=== PATIENT | male | born 1950 | race Caucasian/White ===

== ENCOUNTER 2023-04-07 04:26 | Inpatient (IN) | payer MEDICARE, SELFPAY ==
[2023-04-07] VITALS (51 sets, daily range): BP systolic 75–183; BP diastolic 44–96; PULSE 68–129; RESP 12–31; TEMP 36–37.4; O2SAT 83–99; BMI 42.5
--- NOTE | 2023-04-07 | ECHO_ITS ---
Patient Info Name: Agustín Torre Age: 73 years : 1950 Gender: Male Ht: 71 in Wt: 315 lbs BSA: 2.74 m2 HR: 68 bpm BP: 99 / 63 mmHg Heart Rhythm: Tachycardia Technical Quality: Good Exam Date: 04/07/2023 1:18 PM Exam Location: Echo Lab Patient Status: Inpatient Admit Date: 04/07/2023 Staff Ordering Physician: Andrew Posadas MD Rfp Writer: Barbara Quiros RDCS Attending Provider: Latesha Kendall MD Referring Physician: Katharina CONTRERAS; Exam Type: CA echo dop color flow w con Study Info Indications - Evaluate cardiac function, diffuse edema Complete two-dimensional, color flow and Doppler transthoracic echocardiogram is performed with contrast to opacify the left ventricle and to improve the deliniation of the left ventricle endocardial borders. Contrast/Agitated Saline Contrast/Ag. Saline: Definity Amount: 2.00 ml Administered By: Barbara Quiros RDCS Existing IV Access: Yes IV Access Condition: patent with no signs of infiltration Summary 1. Left ventricular chamber dimension is normal. 2. Left ventricular systolic function is severely reduced, estimated at 30-35%. 3. There is mildly increased left ventricular wall thickness. 4. Left ventricular septal wall motion is abnormal with septal motion related to bundle branch block. 5. The left ventricular diastolic function is abnormal. 6. Left atrial chamber dimension is mildly enlarged. 7. There is mild mitral valve regurgitation. 8. The mitral valve has calcified annulus. 9. There is mild tricuspid valve regurgitation. 10. Mild pulmonary hypertension, estimated pulmonary arterial systolic pressure is 40 mmHg. Left Ventricle Left ventricular chamber dimension is normal. Left ventricular systolic function is severely reduced, estimated at 30-35%. There is mildly increased left ventricular wall thickness. Left ventricular septal wall motion is abnormal with septal motion related to bundle branch block. The left ventricular diastolic function is abnormal. Right Ventricle Right ventricular chamber dimension is normal. Right ventricular systolic function is normal. Left Atria Left atrial chamber dimension is mildly enlarged. Right Atria Right atrial chamber dimension is normal. Atrial Septum Intact interatrial septum visualized by color flow imaging. Aortic Valve The aortic valve is trileaflet. There is mild aortic valve sclerosis. There is no aortic valve stenosis. There is trace aortic valve regurgitation. Pulmonic Valve The pulmonic valve is normal. There is no pulmonic valve stenosis. There is trace pulmonic regurgitation. Mitral Valve The mitral valve has calcified annulus. There is no mitral valve stenosis. There is mild mitral valve regurgitation. Tricuspid Valve The tricuspid valve leaflets are normal. There is no significant tricuspid valve stenosis. There is mild tricuspid valve regurgitation. Mild pulmonary hypertension, estimated pulmonary arterial systolic pressure is 40 mmHg. Pericardium/Pleural The pericardium appears normal. There is trivial pericardial effusion. Inferior Vena Cava Dilated inferior vena cava with <50% collapse upon inspiration consistent with elevated right atrial pressure, 15 mmHg. Aorta The aortic root size at the sinus of Valsalva is normal. Left Ventricular Outflow Tract Name Value Normal
--- NOTE | ~2023-04-07 | XR_ITS ---
Portable chest x-ray Comparison: 01/06/2018 Clinical History: Dyspnea Findings: Kvsvj-[id number]-[id number] right pleural effusion present with hazy right basilar and midlung airsp derrell disease. Left lung clear. Cardiomediastinal silhouette is stable. Bones and soft tissues are unr emarkable. Impression: Small right pleural effusion with probable bibasilar/right midlung pneumonia. Correlate for asymmetri c pulmonary edema. Reviewed, dictated and finalized at location M. T ROOM INSPECTOR Impression: Small right pleural effusion with probable bibasilar/right midlung pneumonia. C orrelate for asymmetric pulmonary edema.
--- NOTE | ~2023-04-07 | XR_ITS ---
EXAMINATION: XR chest ET placement DATE: 04/07/2023 09:35 INDICATION: Intubation TECHNIQUE: frontal view of the chest was obtained. COMPARISON: Chest radiograph and CT from earlier in the day on 04/07/2023 FINDINGS: Endotracheal tube tip 6.0 cm above the johnson. Nasogastric tube with proximal side-port in the body o f the stomach and distal tip extending beyond the inferior margin of the [id number]. Patchy airspa ce opacities in the left mid and lower lung zones. No pneumothorax or evident left pleural effusion. More dense opacities throughout the right hemithorax. Mild cardiomegaly. IMPRESSION: 1. Endotracheal tip 6.0 cm above the johnson. Consider advancement by 4 cm. 2. Extensive bilateral airspace opacities which on recent prior CT correspond to extensive bilateral multifocal pneumonia versus pulmonary edema and moderate-sized right pleural effusion. 3. Cardiomegaly. Reviewed, dictated and finalized at location A. ARY MONITOR IMPRESSION: 1. Endotracheal tip 6.0 cm above the johnson. Consider advancement by 4 cm. 2. Extensive bilateral airspace opacities which on recent prior CT correspond t o extensive bilateral multifocal pneumonia versus pulmonary edema and moderate- sized right pleural effusion. 3. Cardiomegaly.
--- NOTE | ~2023-04-07 | XR_ITS ---
XR abdomen gastric tube insert INDICATION: Evaluate NG tube position. TECHNIQUE: Limited KUB perform for evaluating NG tube . COMPARISON: No prior studies for comparison. FINDINGS: NG tube tip in the stomach. Visualized bowel gas pattern is unremarkable. IMPRESSION: 1: NG tube tip in the stomach. Reviewed, dictated and finalized at location L. SOFTWARE ARCHITECT
--- NOTE | ~2023-04-07 | XR_ITS ---
XR chest 1V portable 04/07/2023 13:04 Indication: Central line placement Procedure: AP portable chest Comparison: 04/07/2023 Findings: Right IJ central line tip in the SVC. Endotracheal tube tip 5.3 cm above the johnson. NG tub e in the stomach. Diffuse bilateral airspace disease. There is right pleural effusion. No pneumothora x. Impression: 1: Diffuse bilateral airspace disease may represent edema or pneumonia. 2: Right IJ central line tip in the SVC. Reviewed, dictated and finalized at location L. OR OF DENTAL MEDICINE Impression: 1: Diffuse bilateral airspace disease may represent edema or pneumonia. 2: Right IJ central line tip in the SVC.
--- NOTE | ~2023-04-07 | CT_ITS ---
Clinical Indication: Dyspnea CT Scan of the Chest with Contrast: Technique: Contiguous sections were acquired throughout the chest after intravenous administration of 100 cc of Omnipaque 350. Dose reduction technique was used on this scan by utilizing automated expos ure control and iterative reconstruction technique. The dose-length product (DLP) was 986.99 mGy-cm. Findings: There is no evidence of any significant mediastinal, hilar or axillary lymphadenopathy. There is no f illing defect in the pulmonary arterial tree to suggest pulmonary embolus. There is no evidence of ao rtic dissection or aneurysm. No pericardial effusion. There is moderate to large right pleural effusion with near complete right lower lobe atelectasis. Th ere is minimal left pleural effusion. There is extensive patchy consolidation throughout the aerated lungs bilaterally. Images through the upper abdomen reveal prominent adrenal glands, suggestive of adrenal hyperplasia. Impression: No evidence of pulmonary embolus, aortic dissection, or aortic aneurysm. Moderate to large right pleural effusion with near complete right lower lobe atelectasis. Minimal left pleural effusion. Extensive pulmonary consolidation bilaterally. Correlate for severe pulmonary edema versus bilateral extensive pneumonia. Reviewed, dictated and finalized at [facility]. NIZATIONAL DEVELOPMENT CONSULTANT Impression: No evidence of pulmonary embolus, aortic dissection, or aortic aneurysm. Moderate to large right pleural effusion with near complete right lower lobe at electasis. Minimal left pleural effusion. Extensive pulmonary consolidation bilaterally. Correlate for severe pulmonary e leonel versus bilateral extensive pneumonia.
--- NOTE | ~2023-04-07 | US_ITS ---
EXAMINATION: US venous doppler [facility] DATE: 04/07/2023 21:03 INDICATION: Lower limb edema. TECHNIQUE: Grayscale ultrasound images without and with compression and Doppler ultrasound images of the bilateral lower extremity veins were obtained. COMPARISON: None. FINDINGS: The visualized portions of right common femoral vein, profunda (deep) femoral vein, popliteal vein, a nd greater saphenous vein outflow are patent. The right femoral vein and posterior tibial veins and p eroneal veins are not well visualized due to the patient's body habitus. The visualized portions of left common femoral vein, profunda femoral vein, femoral vein, popliteal v ein, peroneal veins, posterior tibial veins, and greater saphenous vein outflow are patent. IMPRESSION: 1. No deep venous thrombosis. Reviewed, dictated and finalized at location E. FORM LOADER
--- NOTE | ~2023-04-07 | XR_ITS ---
Portable chest x-ray Comparison: 04/08/2023 Clinical History: Respiratory failure Findings: Endotracheal tube, NG tube, and right IJ line are in place. There is diffuse pulmonary con solidation with small right pleural effusion. Cardiomediastinal silhouette is stable. Bones and soft tissues are unremarkable. Impression: Diffuse pulmonary consolidation with small right pleural effusion. Correlate for pulmonary edema vers us infection. Support tubes, as above. Reviewed, dictated and finalized at location . CE ASSISTANT RECEPTIONIST Impression: Diffuse pulmonary consolidation with small right pleural effusion. Correlate fo r pulmonary edema versus infection. Support tubes, as above.
--- NOTE | ~2023-04-07 | XR_ITS ---
Portable chest x-ray Comparison: 04/07/2023 Clinical History: Respiratory failure Findings: Endotracheal tube, NG tube, and right IJ line are in place. Diffuse pulmonary consolidatio n is present with small right pleural effusion. Cardiomediastinal silhouette is stable. Bones and so ft tissues are unremarkable. Impression: Severe pulmonary edema pattern versus diffuse infection. Correlate clinically. Small right pleural effusion. Support tubes, as above. Reviewed, dictated and finalized at [facility]. HEAD HOOPER Impression: Severe pulmonary edema pattern versus diffuse infection. Correlate clinically. Small right pleural effusion. Support tubes, as above.
[2023-04-07] MEDS: DEXTROSE 50% 25 GM/50 ML SYRINGE IV PUSH ×3 (04:30→13:15)
[2023-04-07 04:43] LABS: Glucose Point of Care 180 mg/dl (65-105)
--- NOTE | 2023-04-07 04:50 | ECG_ITS ---
Measurements Intervals [place] Rate: 90 P: MA: 0 QRS: -1 QRSD: 130 T: 105 QT: 389 QTc: 477 Interpretive Statements ATRIAL FIBRILLATION FREQUENT VENTRICULAR PREMATURE COMPLEXES LEFT BUNDLE BRANCH BLOCK BASELINE ARTIFACT- I, II, AVR ABNORMAL ECG NO PREVIOUS ECG AVAILABLE FOR COMPARISON Electronically Signed On 04-07-2023 6:51:45 [employer] by César Bustamante D.O.
[2023-04-07] MEDS: GLUCOSE ORAL GEL 15 GM OF GLUCSE IN 37.5 GM TUBE PO (05:04)
[2023-04-07 05:05] LABS: Basophils Percent Auto 0.1 % (0.2-1.2); Eosinophils Percent Auto 0.2 % (0-4.4); Hematocrit 36.8 % (42.0-52.0); Hemoglobin 11.6 g/dL (14.0-18.0); Immature Granulocyte Absolute 0.04 K/mm3 (0.00-0.031); Immature Granulocyte Percent A 0.5 % (0-0.5); Lymphocytes Absolute Auto 0.93 K/mm3 (0.9-3.2); Lymphocytes Percent Auto 10.7 % (18.3-44.2); Mean Corpuscular HGB Conc 31.5 g/dl (32-36); Mean Corpuscular Hemoglobin 26.3 pg (26-34); Mean Corpuscular Volume 83.4 fl (80-100); Mean Platelet Volume 9.7 fl (7.4-10.4); Monocytes Absolute Auto 0.7 K/mm3 (0.1-0.6); Monocytes Percent Auto 7.8 % (2.6-8.5); Neutrophils Percent Auto 80.7 % (45.5-73.1); Platelet Count Result 415 k/mm3 (150-375); Red Blood Count 4.41 M/mm3 (4.6-6.20); Red Cell Distribution Width 16.9 % (11.5-14.5); White Blood Count 8.7 K/mm3 (4.5-10.0)
[2023-04-07 05:16] LABS: Lactic Acid Reflex 1.9 mmol/L (0.7-2.0)
[2023-04-07 05:17] LABS: Prothrombin Time 14.1 Seconds (11.1-14.7)
[2023-04-07 05:18] LABS: Partial Thromboplastin Time 28.9 SECONDS (22.3-36.8)
[2023-04-07 05:20] LABS: Alveolar/Arterial O2 Gradient 106.5 mmHg; Base Excess ABG -2.6 mEq/l (+/-2.0); Fractional Inspired Oxygen 28 %; HCO3 ABG 22.3 mEq/l (22.0-26.0); Oxygen Content ABG 13.9 %vol (16.0-22.0); PCO2 ABG 38.9 mmHg (35.0-45.0); PO2 FiO2 Ratio Arterial Blood 1.69 %; Total Hemoglobin 12.4 g/dL (12.0-18.0); pH ABG 7.376 (7.350-7.450)
[2023-04-07 05:21] LABS: PO2 ABG 47.2 mmHg (80.0-100.0)
[2023-04-07 05:22] LABS: Modified Allen's Test Pass; Oxygen Saturation ABG 82.3 % (95.0-100.0); Oxyhemoglobin 79.9 % THb (90.0-100.0); Site Drawn RIGHT RADIAL
[2023-04-07 05:23] LABS: Device NASAL CANNULA
--- NOTE | 2023-04-07 05:28 | PC.NURSE ---
UNABLE TO OBTAIN AN ACCURATE READING FOR PTS O2 SAT. PT PLACED ON 10L NONREBREATHER DUE TO INCREASING SOB AND CRITICAL ABG. PROVIDER MADE AWARE.
[2023-04-07 05:55] LABS: Alanine Aminotransferase 28 U/L (6-50); Albumin Level 4.2 g/dL (3.5-5.1); Alkaline Phosphatase 130 U/L (38-126); Anion Gap 8 mmol/L (8-16); Aspartate Amino Transferase 63 U/L (17-59); Bilirubin,Total 0.7 mg/dL (0.2-1.3); Blood Urea Nitrogen 21 mg/dL (9-20); Calcium 9.2 mg/dL (8.4-10.2); Carbon Dioxide 30 mmol/L (22-30); Chloride 87 mmol/L (98-107); Estimated CRCL calculation 87 ml/min; Estimated Glomerular Filt Rate > 60; Glucose 74 mg/dL (65-110); Lipase 70 U/L (23-300); Magnesium 2.4 mg/dL (1.6-2.3); NT Pro B Type Natriuretic Pept 1830 pg/mL (19.9-100); Potassium 3.8 mmol/L (3.4-5.0); Sodium 125 mmol/L (137-145); Troponin I 0.378 ng/mL (0.000-0.034)
[2023-04-07] MEDS: FUROSEMIDE INJ 40 MG/4 ML VIAL IV PUSH ×2 (06:02→17:53)
[2023-04-07] MEDS: ASPIRIN 81 MG CHEWABLE TABLET 324 MG PO (06:02)
[2023-04-07 06:14] LABS: Influenza A QL RT-PCR Negative (Negative); Influenza B QL RT-PCR Negative (Negative); RSV RNA, RT-PCR Negative (Negative); SARS-CoV-2 RNA PCR Negative (Negative)
--- NOTE | 2023-04-07 06:16 | ED.GENADULT ---
HPI - General Adult General Chief complaint: Altered Mental Status <Sergo Puri MD - Last Filed: 04/07/23 06:21> Stated complaint: HYPOGLYCEMIA <Sergo Puri MD - Last Filed: 04/07/23 06:21> Time Seen by Provider: 04/07/23 04:37 <Sergo Puri MD - Last Filed: 04/07/23 06:21> History of Present Illness HPI narrative: Patient 73-year-old gentleman who presents emergency department with chief complaint of altered mental status. Patient is an insulin-dependent diabetic and was found by EMS to be unresponsive with a blood sugar in the 20s they were unable to get IV access gave the patient mg of glucagon IM and also give him oral glucose. On arrival in the emergency department the patient was still confused and combative. IV access was obtained and the patient was given IV dextrose with improvement in his blood sugar and mental status. After the patient's blood sugar was managed the patient reported that he has been short of breath and also reports that he has been having significant edema including massive scrotal edema. <Sergo Puri MD - Last Filed: 04/07/23 06:21> Patient 73-year-old gentleman who presents to the emergency department with chief complaint of altered mental status. Patient is an insulin-dependent diabetic and was found by EMS to be unresponsive with a blood sugar in the 20s they were unable to get IV access gave the patient mg of glucagon IM and also give him oral glucose. On arrival to the emergency department the patient was still confused and combative. IV access was obtained and the patient was given IV dextrose with improvement in his blood sugar and mental status. After the patient's blood sugar was managed the patient reported that he has been short of breath and also reports that he has been having significant edema including massive scrotal edema. <Osvaldo Almanza MD - Last Filed: 04/07/23 17:49> Related Data Home medications: Home Medications Medication Instructions Recorded Confirmed hydrochlorothiazide 12.5 mg capsule 12.5 mg PO DAILY 04/07/23 04/07/23 insulin aspart U-100 100 unit/mL subcut 04/07/23 (3 mL) subcutaneous pen (Novolog FlexPen U-100 Insulin aspart) losartan 50 mg tablet 50 mg PO DAILY 04/07/23 04/07/23 <Sergo Puri MD - Last Filed: 04/07/23 06:21> Allergies/adverse reactions: Allergies Allergy/AdvReac Type Severity Reaction Status Date / Time No Known Allergies Allergy Unverified 01/06/18 16:20 <Sergo Puri MD - Last Filed: 04/07/23 06:21> Review of Systems Review of Systems: A 10 system review of systems was completed on the patient and is negative except for what is stated in the HPI. Nursing and ancillary documentation was reviewed. <Sergo Puri MD - Last Filed: 04/07/23 06:21> [facility] Past Medical History Medical History: Medical History Hyperlipidemia Hypertension Insulin dependent type 2 diabetes mellitus Peripheral neuropathy <Sergo Puri MD - Last Filed: 04/07/23 06:21> Surgical History Surgical History: Surgical History History of tonsillectomy <Sergo Puri MD - Last Filed: 04/07/23 06:21> Family History Family History: Family History Mother Cerebrovascular accident Father Cardiovascular disease <Sergo Puri MD - Last Filed: 04/07/23 06:21> Social History Social History: Social History (Updated 04/07/23 @ 17:31 by Kalee Milligan PA-C) Social History: Surrogate medical decision maker: Susanna Torre, spouse. Code status: Full code. Smoking status: Never smoker Alcohol intake: never Substance use: never Do You Feel Safe in your Home?: Yes Lack of Transportation: No L
[2023-04-07 06:25] LABS: Glucose Point of Care 184 mg/dl (65-105)
--- NOTE | 2023-04-07 06:39 | PC.NURSE ---
Addendum entered by Jess Vela RN 04/07/23 07:02: note unfinished Original Note: pT REFU
--- NOTE | 2023-04-07 07:02 | PC.NURSE ---
Pt refusing straight catheter. pt attempting to urinate in urinal since 0600
[2023-04-07 08:16] LABS: Appearance Urine Clear (Clear); Bacteria Urine None Seen /hpf; Bilirubin Urine Negative (Negative); Blood Urine Negative (Negative); Color Urine Yellow (Yellow); Glucose Urine UA Negative (Negative); Ketones Urine Negative (Negative); Leukocyte Esterase Ur Trace LEU/UL (Negative); Nitrate Urine Negative (Negative); Non Pathogenic Casts 0-2; Protein Urine Negative (Negative); RBC Urine 0-2 /hpf (0-2); Specific Grav Ur 1.031 (1.001-1.035); Squamous Epithelial Cell Urine None seen /hpf (Few); Urobilinogen Urine 0.2 mg/dL (<2.0); WBC Urine 0-5 /hpf; pH Urine 5.5 (5.0-9.0)
[2023-04-07 08:19] LABS: Add Urine Microscopic? YES
--- NOTE | 2023-04-07 08:25 | PC.NURSE ---
02 sats in mid to lower 80's on bipap. ERP aware. FIO2 increased to 100%.
--- NOTE | 2023-04-07 08:36 | ECG_ITS ---
Measurements Intervals [place] Rate: 102 P: VT: 0 QRS: -1 QRSD: 134 T: 142 QT: 353 QTc: 460 Interpretive Statements ATRIAL FIBRILLATION WITH RAPID VENTRICULAR RESPONSE FREQUENT VENTRICULAR PREMATURE COMPLEXES LEFT BUNDLE BRANCH BLOCK BASELINE ARTIFACT- I, III, AVL, AVF ABNORMAL ECG COMPARED TO ECG 04/07/2023 04:35:05 HEART RATE HAS INCREASED Electronically Signed On 04-07-2023 9:20:30 CAR RECORD CLERK by César Bustamante D.O.
--- NOTE | 2023-04-07 08:55 | PC.NURSE ---
Etomidate 20 mg and Succinylcholine 100 mg given IVP for intubation. 7.5 ET tube placed at 24 lip. Placement verified with auscultation and color change on c02.
--- NOTE | 2023-04-07 09:11 | PC.NURSE ---
16 [place] sump placed to right nare with return of gastric fluid.
[2023-04-07] MEDS: PROPOFOL IV EMULSION 100 ML 4.3 MG IV CONT (09:16)
[2023-04-07] MEDS: ALBUTEROL SULFATE NEB 2.5 MG/3 ML INH INHALATION ×3 (09:17→21:16)
[2023-04-07 09:22] LABS: Troponin I 0.301 ng/mL (0.000-0.034)
[2023-04-07 09:27] LABS: Triglycerides 48 mg/dL (<150)
--- NOTE | 2023-04-07 09:38 | PCRCNOTE ---
0831 [facility] tx that was scheduled by Dr. Chase was late due to pt getting intubated due to poor respiratory status.
[2023-04-07] MEDS: AZITHROMYCIN 500 MG/NS 250 ML 500 MG/250 ML BAG 250 MG IVPB (09:58)
[2023-04-07] MEDS: fentaNYL CITRATE INJ (*CRX) 100 MCG/2 ML VIAL IV PUSH (10:45)
[2023-04-07] MEDS: MIDAZOLAM HCL (*CRX) 2 MG/2 ML VIAL IV PUSH (10:45)
[2023-04-07] MEDS: MIDAZOLAM 100MG/NS 100ML(*CRX) 100 MG/100 ML BAG IV CONT (10:50)
[2023-04-07] MEDS: FENTANYL 2,500MCG/NS250ML(*CRX 2,500 MCG/250 ML BAG IV CONT (10:50)
--- NOTE | 2023-04-07 10:50 | ADMGEN ---
This patient, Agustín Torre, was admitted to Intensive Care Unit-3. Family oriented to hospital policies and general routines including ID bracelet, bed and alarms, visiting hours, pain management, procedures, bathroom and other care routines, personal items, smoking policy, room service/diet, and visiting hours. Information on how to activate the Rapid Response Team has been discussed. Family are encouraged to report perceived risks to care and to ask questions if they do not understand what they are told or what they should do.
[2023-04-07] MEDS: ROCURONIUM BROMIDE 50 MG/5 ML VIAL IV PUSH (11:00)
--- NOTE | 2023-04-07 11:31 | WPDCNINT ---
Assessment and Plan Assessment and plan (1) Shock: Code(s): R57.9 - Shock, unspecified Status: Acute Assessment and Plan: Patient presented with hyperglycemia, shortness of breath, bilateral diffuse lung disease, hypotension, new onset AFib RVR, patient dropped her blood pressures, central line was inserted on 04/07/2023 -Levophed was started, will maintain MAP > 65 mmHg at all times for adequate end organ perfusion -initial lactic acid was negative, will repeat lactic acid -patient started on cefepime, azithromycin and vancomycin (04/07) -shock could be related to septic versus cardiogenic -stat echocardiogram has been ordered and completed -cardiology consulted Procalcitonin level is a 0.2 -04/07 blood cultures: Have been obtained and pending, will deescalate antibiotics once cultures are resulted (2) Respiratory failure: Code(s): J96.90 - Respiratory failure, unspecified, unspecified whether with hypoxia or hypercapnia Status: Acute Assessment and Plan: Patient presented with shortness of breath, cough for roughly 6 weeks along with anasarca, pitting edema bilateral lower extremities -patient failed BiPAP in the ER and was intubated 04/07/2024 -patient currently on CMV mode of ventilation, peep of 14 and % FiO2 -diffuse lung disease on chest x-ray and CT scan -started on bronchodilators -sedated with fentanyl and Versed infusion, maintain RASS of -2 04/07: CTA chest: No evidence of pulmonary embolus, aortic dissection, or aortic aneurysm. Moderate to large right pleural effusion with near complete right lower lobe atelectasis. Minimal left pleural effusion. Extensive pulmonary consolidation bilaterally. Correlate for severe pulmonary edema versus bilateral extensive pneumonia. (3) Hypoglycemia: Code(s): E16.2 - Hypoglycemia, unspecified Status: Acute Assessment and Plan: Patient was unresponsive at, when EMS arrived patient was hypoglycemic with blood sugars in the 20s, EMS was unable to insert line so patient was given glucagon IM and oral glucose. On arrival to the ER patient, IV line was inserted patient was here NG dextrose 50% with improvement in sugars as well as mental status. -in the ICU patient was hypoglycemic and was given D50 x2 on separate occasions -will start patient on D20 at 20 mL/hour has a will to limit fluids (4) CHF (congestive heart failure): Code(s): I50.9 - Heart failure, unspecified Status: Acute Assessment and Plan: Patient seems to be in heart failure with diffuse anasarca and lower extremity pitting edema -echocardiogram has been ordered and completed, awaiting results -patient was given Lasix 40 mg IV x1 in the ER, I repeated Lasix 80 mg IV x1 in the ICU -once echo report is resulted, will have no idea about systolic and/or diastolic function (5) Elevated troponin: Code(s): R79.89 - Other specified abnormal findings of blood chemistry Status: Acute Assessment and Plan: Elevated troponins, flat and trending down, likely related to hypoxia, and increased ischemic demand -echocardiogram has been ordered (6) New onset atrial fibrillation: Code(s): I48.91 - Unspecified atrial fibrillation Status: Acute Assessment and Plan: Patient with new onset atrial fibrillation as I discussed with the spouse who really does not know what medical problems the patient has as he hides everything from her. I also discussed with the son with has not had that the patient has any irregular heart rhythm or atrial fibrillation in the past -start patient on a heparin infusion -cardiology has been consulted, await -currently rate controlled with heart rates in the 100s Plan DVT prophylaxis: Heparin infusion Stress ulcer prophylaxis: Protonix Nutrition: NPO for now Code Status: Full code Critical Care Time Spent: 81 minutes Discussed with patient's spouse and son at bedside updated them with patient's co
[2023-04-07 11:42] LABS: Alveolar/Arterial O2 Gradient 595.3 mmHg; Carboxyhemoglobin 0.3 % THb (0-2.0); Fractional Inspired Oxygen 100 %; HCO3 ABG 23.5 mEq/l (22.0-26.0); Methemoglobin ABG 0.2 %THb (0-1.5); Oxygen Content ABG 16.1 %vol (16.0-22.0); Oxygen Saturation ABG 97.4 % (95.0-100.0); Oxyhemoglobin 95.8 % THb (90.0-100.0); PCO2 ABG 30.7 mmHg (35.0-45.0); PO2 FiO2 Ratio Arterial Blood 0.87 %; Reduced Hemoglobin 3.7 %THb (0-5.0); Total Hemoglobin 11.9 g/dL (12.0-18.0)
[2023-04-07 11:43] LABS: Arterial Blood Gas PEEP 14 cmH2O; Arterial Blood Gas Tidal Volume 450 ml; Arterial Blood Gas Vent Mode CMV; Arterial Blood Gas Ventilator rate 24 /MIN; Device VENTILATOR; Modified Allen's Test Pass; Site Drawn RIGHT RADIAL; pH ABG 7.502 (7.350-7.450)
[2023-04-07 11:52] LABS: Glucose Point of Care 50 mg/dl (65-105)
[2023-04-07] MEDS: VANCOMYCIN 1,250 MG/NS 250 ML 1,250 MG/250 ML BAG 166.67 MG IVPB ×2 (12:00→12:41)
[2023-04-07 12:07] LABS: Procalcitonin 0.2 ng/mL
[2023-04-07] MEDS: FUROSEMIDE INJ 100 MG/10 ML VIAL 80 MG IV PUSH (12:11)
[2023-04-07] MEDS: CEFEPIME 2 GM/NS 50 ML 2 GM/50 ML BAG IVPB ×2 (12:12→22:10)
[2023-04-07] MEDS: EPINEPHrine INJ 1 MG/10 ML SYRINGE IV PUSH (12:13)
[2023-04-07] MEDS: HEPARIN SOD/D5W 100 UNITS/ML 25,000 UNITS/250 ML BAG 15 UNITS IV CONT (12:13)
[2023-04-07] MEDS: HEPARIN SODIUM 5,000 UNITS/ML VIAL 8000 UNITS IV PUSH (12:14)
[2023-04-07] MEDS: NOREPINEPHRINE 8 MG/D5W 250 ML 8 MG/250 ML BAG 9.38 MG IV CONT (13:05)
--- NOTE | 2023-04-07 13:05 | PM.IMHP ---
H&P: HPI History of Present Illness Date/Time: 04/07/23 15:00 Chief Complaint: Altered mental status. Narrative: This is a 73-year-old male with insulin-dependent type 2 diabetes and hypertension who presented to the emergency department via EMS from home for evaluation of altered mental status. He is currently sedated and is on mechanical ventilation and is unable to provide history and as such all of the following is obtained via a review of his EMR as well as information provided by his spouse. According to the patient's , she has noticed that over the last several months he has developed increasing edema, progressive dyspnea on lesser and lesser exertion to the point where he is getting winded with everyday activities at the home, nonproductive cough, wheezing, and orthopnea. These symptoms seem to have escalated in the last several weeks and last night she told him that he needed to make an appointment with the doctor. At 03:00 heard the patient yelling incoherently and she found him on the floor in the kitchen and called 911. Glucose was reportedly 25 on EMS arrival and he was given IM glucagon and oral glucose with improvement in mentation. His vital signs were stable on arrival to the ED however within about an hour or so he became increasingly dyspneic and hypoxic and was started on BiPAP. He was subsequently intubated due to troubles oxygenating. Initial chest x-ray showed a small right pleural effusion with probable bibasilar/right middle lung pneumonia. Chest CTA done 1 hour thereafter showed [id number] right pleural effusion with near complete right lower lobe atelectasis and extensive pulmonary consolidation; it was negative for PE. EKG showed atrial fibrillation with left bundle-branch block. Labs were significant for for a sodium of 125, chloride 87, BUN 21, creatinine 1.00, troponin 0.378, proBNP 1830. Interventions thus far include a D20 drip for hypoglycemia, heparin drip for elevated troponin and what appears to be new onset atrial fibrillation, broad-spectrum antibiotics to cover for possible pneumonia, and IV furosemide for congestive changes on imaging and significant edema. At the time my evaluation he is comfortably sedated. He is currently on 7 mics of norepinephrine with stable blood pressures. He is oxygenating well on mechanical ventilation. and son are at bedside. To their knowledge he has no history of coronary artery disease, cardiac dysrhythmia, or sleep apnea. He has not been complaining of chest discomfort or palpitations. Aside from a cough, he has not exhibited any cold or flu symptoms. Review of Systems Review of Systems: Unable to obtain given clinical condition. [facility] Past Medical History Medical History Hyperlipidemia Hypertension Insulin dependent type 2 diabetes mellitus Peripheral neuropathy Surgical History Surgical History History of tonsillectomy Family History Family History Mother Cerebrovascular accident Father Cardiovascular disease Social History Social History Social History: Surrogate medical decision maker: Susanna Torre, spouse. Code status: Full code. Smoking status: Never smoker Alcohol intake: never Substance use: never Do You Feel Safe in your Home?: Yes Lack of Transportation: No Lack of Food: Never True Current Housing: Decline to Answer Concerned About Future Housing: Decline to Answer Difficulty Paying Gas/Electric Bills: Decline to Answer Difficulty Paying for Meds: Decline to Answer Currently Unemployed: Decline to Answer Education: Decline to Answer Difficulty w/ Childcare or Family Care: Decline to Answer Additional living arrangements comments: Lives with spouse in [place]. Additional o
--- NOTE | 2023-04-07 13:21 | WPDPROCEDUR ---
Procedures Central Line Placement Right IJ: Central Line Date: 04/07/23 Central Line Time: 13:24 Discussed w/ the patient/family/POA,the placement of a central venous catheter, including its clinical necessity/indication & associated potential risks, benifits and alternatives.: Yes The patient/family/POA understand(s) and acknowledge(s) the need to proceed with central venous catheter insertion as an important element of the patient's clinical management.: Yes Consent: I have discussed with the patient and/or surrogate, the non-emergent placement of a central venous catheter, including its clinical necessity/indication and associated potential risks and complications. The patient and/or surrogate understand(s) and acknowledge(s) the need to proceed with central venous catheter insertion as an important element of the patient's clinical management. Time Out Performed: Yes Patient Position: supine Patient placed on monitor/pulse ox: Yes Provider Prep: mask, sterile gown, sterile gloves, Max. sterile barrier precautions, cap and hand hygiene with conventional soap/water or alcohol based hand rub Central line prep: 2% Chlorhexidine scrub Local anesthesia used: lidocaine 1% Amount of anesthesia used (ml): 3 Sterile US Technique with sterile gel/sterile probe covers: Yes Central line lumen inserted: triple Turkish: 12 Length (cm): 16 Depth of Insertion (cm): 16 Post Procedure: sutured in place, good blood return, all ports aspirated, flushed, capped, transparent dressing, hemostatic product, antimicrobial product, securement product and aseptic technique maintained throughout procedure Post procedure x-ray: tip of catheter in good position and no pneumothorax seen Patient tolerated procedure: well Complications: none
[2023-04-07 13:24] LABS: Alveolar/Arterial O2 Gradient 488.9 mmHg; Base Excess ABG 1.2 mEq/l (+/-2.0); Carboxyhemoglobin 0.3 % THb (0-2.0); Fractional Inspired Oxygen 100 %; Methemoglobin ABG 0.3 %THb (0-1.5); Oxygen Content ABG 16.8 %vol (16.0-22.0); Oxygen Saturation ABG 99.3 % (95.0-100.0); PCO2 ABG 41.9 mmHg (35.0-45.0); PO2 ABG 182.2 mmHg (80.0-100.0); PO2 FiO2 Ratio Arterial Blood 1.82 %; Reduced Hemoglobin 1.4 %THb (0-5.0); Total Hemoglobin 11.9 g/dL (12.0-18.0); pH ABG 7.411 (7.350-7.450)
[2023-04-07 13:25] LABS: Device VENTILATOR; Site Drawn ARTLINE
--- NOTE | 2023-04-07 13:25 | P.PCNBED_ITS ---
Procedures Arterial Line Arterial Line Date: 04/07/23 Arterial Line Time: 13:26 Discussed with the patient/family/POA, the placement of an arterial catheter, including its clinical necessity/indication and associated potential risks, benefits and alternatives.: Yes Patient/family/POA and/or understands and acknowledges the need to proceed with the arterial catheter insertion as an important element of the patient's clinical management.: Yes Time Out Performed: Yes Launch Operator Prep: sterile gown, sterile gloves, mask and hat Site: right and femoral Site Prep: chlorhexidine and sterile drape Skin Anesthesia: 1% lidocaine Technique used: ultrasound-guided Size (Gauge): 16 Length: 12 cm Closure/Dressing: suture, transparent dressing, hemostatic product, antimicrobial product and securement product Patient tolerated procedure: well Complications: none
[2023-04-07 13:26] LABS: Arterial Blood Gas PEEP 14 cmH2O; Arterial Blood Gas Tidal Volume 450 ml; Arterial Blood Gas Vent Mode CMV; Arterial Blood Gas Ventilator rate 20 /MIN
[2023-04-07 13:30] LABS: Glucose Point of Care 69 mg/dl (65-105)
[2023-04-07] MEDS: PERFLUTREN LIPID MICROSPHERES 1.5 ML VIAL DILUTED TO 10 ML TOTAL VOLUME IV PUSH (13:30)
[2023-04-07 14:00] LABS: MRSA (PCR) NOT DETECTED (NOT DETECTE)
--- NOTE | 2023-04-07 14:04 | IVDEFINITY ---
Prior to administration of IV Definity the patient was educated on the risks and benefits of the imaging enhancing agent including potential adverse side effects. The patient verbalized understanding. Allergies were verified. No exclusion criteria were identified and at least one of the following inclusion criteria were met: 1) physician request, 2) patient technically difficult to image (per the [place] [employer] guidelines of two or more segments not discernable within the apical view), or 3) questionable left ventricular function. ?
[2023-04-07 14:24] LABS: Glucose Point of Care 161 mg/dl (65-105)
[2023-04-07 14:37] LABS: Lactic Acid Reflex 1.5 mmol/L (0.7-2.0)
[2023-04-07] MEDS: PANTOPRAZOLE SODIUM IV 40 MG VIAL IV PUSH (15:04)
[2023-04-07 15:09] LABS: Glucose Point of Care 137 mg/dl (65-105)
--- NOTE | 2023-04-07 15:15 | PM.CNCAR ---
Assessment and Plan Assessment and plan (1) Congestive heart failure: Code(s): I50.9 - Heart failure, unspecified Status: Acute Assessment and Plan: No history of cardiomyopathy or CHF. He does have extensive peripheral edema and pulmonary edema consistent with acute decompensated heart failure. He has rec'd a total of 120mg IV furosemide today Will order furosemide 40mg b.i.d Stat echo ordered, results pending Strict intake and output Daily weights Further recommendation to follow review of echo (2) Acute respiratory failure: Code(s): J96.00 - Acute respiratory failure, unspecified whether with hypoxia or hypercapnia Status: Acute Assessment and Plan: Diffuse lung disease noted on CXR and chest CT. Severe pulmonary edema vs. extensive pneumonia. He is now mechanically ventilated. Receiving abx for possible pneumonia. (3) Hyperlipidemia: Code(s): E78.5 - Hyperlipidemia, unspecified Status: Acute Assessment and Plan: check lipid panel (4) Hypertension: Code(s): I10 - Essential (primary) hypertension Status: Acute Assessment and Plan: Hypotensive at presentation, now being supported with norepinephrine (5) New onset atrial fibrillation: Code(s): I48.91 - Unspecified atrial fibrillation Status: Acute Assessment and Plan: New diagnosis. Adequately rate controlled now without any rate or rhythm controlling agents. If he does experience RVR, would probably choose IV amiodarone as this is least likely to affect his blood pressure. Anticoagulated with heparin currently, will need to shift to a DOAC at some point. (6) Shock: Code(s): R57.9 - Shock, unspecified Status: Acute Assessment and Plan: Cardiogenic vs. septic. Abx started for possible pneumonia, blood cultures pending. Echo is pending as well. Being hemodynamically supported with norepinephrine currently. History of Present Illness History of Present Illness Consult date/time: 04/07/23 15:15 Requesting physician: Andrew Posadas MD Consult reason: atrial fibrillation and congestive heart failure Reason For Visit: respiratory failure,pneumonia,hypoxia,chf,hypoglyc Narrative: Mr. Torre is a 73-year-old male with a history of insulin-dependent diabetes, hypertension, and hyperlipidemia. This is a patient who was brought to the hospital via EMS after his found him unresponsive in their kitchen. According to report, the patient's blood glucose was in the 20s when EMS arrived. Patient is intubated and sedated currently, therefore, this history was obtained through the medical record and from the patient's and son who are at the bedside. Patient's states that for the past 2 months patient has had shortness of breath, cough, wheezing, and lower extremity swelling. She also reports that patient has had difficulty breathing when he lies flat to sleep. She denies any known cardiac history. Currently, the patient is mechanically ventilated and supported with vasopressin. Review of Systems Review of Systems: All systems reviewed & are unremarkable except as noted in HPI and below PMFSH Past Medical History Medical History Hyperlipidemia Hypertension Insulin dependent type 2 diabetes mellitus Peripheral neuropathy Surgical History Surgical History History of tonsillectomy Family History Family History Mother Cerebrovascular accident Father Cardiovascular disease Social History Social History Social History: Surrogate medical decision maker: Code status: Full code. Smoking status: Never smoker Alcohol intake: never Substance use: never Do You Feel Safe in your Home?: Yes Lack of Transportat
[2023-04-07 16:11] LABS: Glucose Point of Care 117 mg/dl (65-105)
[2023-04-07 16:17] LABS: Cholesterol 158 mg/dL (0-200); HDL Direct 88 mg/dL; Triglycerides 47 mg/dL (<150)
[2023-04-07 16:28] LABS: LDL Cholesterol Direct 54 mg/dL
[2023-04-07 16:40] LABS: Alveolar/Arterial O2 Gradient 374.6 mmHg; Base Excess ABG 2.9 mEq/l (+/-2.0); Fractional Inspired Oxygen 100 %; HCO3 ABG 26.8 mEq/l (22.0-26.0); Methemoglobin ABG 0.3 %THb (0-1.5); Oxygen Content ABG 17.7 %vol (16.0-22.0); Oxygen Saturation ABG 99.7 % (95.0-100.0); Oxyhemoglobin 98.8 % THb (90.0-100.0); PCO2 ABG 38.6 mmHg (35.0-45.0); PO2 ABG 299.8 mmHg (80.0-100.0); Reduced Hemoglobin 0.9 %THb (0-5.0); Total Hemoglobin 12.2 g/dL (12.0-18.0); pH ABG 7.459 (7.350-7.450)
[2023-04-07 16:42] LABS: Device VENTILATOR; Site Drawn ARTLINE
[2023-04-07 16:43] LABS: Arterial Blood Gas PEEP 12 cmH2O; Arterial Blood Gas Tidal Volume 450 ml; Arterial Blood Gas Vent Mode CMV; Arterial Blood Gas Ventilator rate 20 /MIN
[2023-04-07] MEDS: IPRATROPIUM BR 0.02% INH SOLN 0.5 MG/2.5 ML VIAL INHALATION ×2 (16:49→21:16)
[2023-04-07 18:00] LABS: Glucose Point of Care 173 mg/dl (65-105)
[2023-04-07 18:00] LABS: Glucose Point of Care 191 mg/dl (65-105)
[2023-04-07 18:00] LABS: Glucose Point of Care 159 mg/dl (65-105)
[2023-04-07 18:00] LABS: Glucose Point of Care > 500 mg/dl (65-105)
[2023-04-07 18:06] LABS: Glucose Point of Care 141 mg/dl (65-105)
[2023-04-07 18:06] LABS: Glucose Point of Care 136 mg/dl (65-105)
[2023-04-07 19:03] LABS: Partial Thromboplastin Time > 200.0 SECONDS (22.3-36.8)
[2023-04-07] MEDS: MINERAL OIL/WHITE PETROLATUM OINTMENT 1 APPLIC EACH EYE (20:00)
[2023-04-07 20:06] LABS: Glucose Point of Care 192 mg/dl (65-105)
[2023-04-07 22:15] LABS: Glucose Point of Care 136 mg/dl (65-105)
[2023-04-07 22:38] LABS: Alveolar/Arterial O2 Gradient 467.3 mmHg; Fractional Inspired Oxygen 80 %; HCO3 ABG 25.6 mEq/l (22.0-26.0); Oxygen Content ABG 15.3 %vol (16.0-22.0); Oxygen Saturation ABG 91.6 % (95.0-100.0); Oxyhemoglobin 89.9 % THb (90.0-100.0); PCO2 ABG 40.7 mmHg (35.0-45.0); PO2 ABG 60.4 mmHg (80.0-100.0); PO2 FiO2 Ratio Arterial Blood 0.75 %; Total Hemoglobin 12.1 g/dL (12.0-18.0); pH ABG 7.417 (7.350-7.450)
[2023-04-07 22:39] LABS: Arterial Blood Gas PEEP 10 cmH2O; Arterial Blood Gas Vent Mode CMV; Arterial Blood Gas Ventilator rate 20 /MIN; Device VENTILATOR; Site Drawn ARTLINE
[2023-04-07 22:40] LABS: Arterial Blood Gas Tidal Volume 450 ml
[2023-04-08] VITALS (44 sets, daily range): BP systolic 80–125; BP diastolic 45–73; PULSE 90–115; RESP 15–23; TEMP 37.2–37.6; O2SAT 91–98; BMI 41.7
[2023-04-08] MEDS: VANCOMYCIN 1,500 MG/NS 500 ML 1,500 MG/500 ML BAG 250 MG IVPB ×2 (00:02→13:45)
[2023-04-08] MEDS: IPRATROPIUM BR 0.02% INH SOLN 0.5 MG/2.5 ML VIAL INHALATION ×4 (02:05→20:19)
[2023-04-08] MEDS: ALBUTEROL SULFATE NEB 2.5 MG/3 ML INH INHALATION ×4 (02:06→20:19)
[2023-04-08 02:29] LABS: Glucose Point of Care 177 mg/dl (65-105)
[2023-04-08 02:29] LABS: Glucose Point of Care 177 mg/dl (65-105)
[2023-04-08 02:53] LABS: INR 1.5; Prothrombin Time 18.4 Seconds (11.1-14.7)
[2023-04-08 03:19] LABS: Partial Thromboplastin Time > 200.0 SECONDS (22.3-36.8)
[2023-04-08 04:23] LABS: Basophils Percent Auto 0.3 % (0.2-1.2); Hematocrit 32.9 % (42.0-52.0); Hemoglobin 10.5 g/dL (14.0-18.0); Immature Granulocyte Absolute 0.03 K/mm3 (0.00-0.031); Immature Granulocyte Percent A 0.3 % (0-0.5); Lymphocytes Absolute Auto 0.95 K/mm3 (0.9-3.2); Mean Corpuscular HGB Conc 31.9 g/dl (32-36); Mean Corpuscular Hemoglobin 26.3 pg (26-34); Mean Corpuscular Volume 82.3 fl (80-100); Mean Platelet Volume 9.3 fl (7.4-10.4); Monocytes Absolute Auto 0.7 K/mm3 (0.1-0.6); Monocytes Percent Auto 6.5 % (2.6-8.5); Neutrophils Absolute Auto 8.9 K/mm3 (1.3-6.7); Neutrophils Percent Auto 83.9 % (45.5-73.1); Platelet Count Result 339 k/mm3 (150-375); Red Cell Distribution Width 16.5 % (11.5-14.5); White Blood Count 10.5 K/mm3 (4.5-10.0)
[2023-04-08 04:32] LABS: Lactic Acid Reflex 2.2 mmol/L (0.7-2.0)
[2023-04-08 04:37] LABS: Alanine Aminotransferase 21 U/L (6-50); Alkaline Phosphatase 91 U/L (38-126); Anion Gap 8 mmol/L (8-16); Aspartate Amino Transferase 47 U/L (17-59); Bilirubin,Total 0.9 mg/dL (0.2-1.3); Blood Urea Nitrogen 24 mg/dL (9-20); Calcium 7.6 mg/dL (8.4-10.2); Carbon Dioxide 28 mmol/L (22-30); Chloride 89 mmol/L (98-107); Estimated CRCL calculation 71 ml/min; Estimated Glomerular Filt Rate 60; Glucose 183 mg/dL (65-110); Magnesium 2.2 mg/dL (1.6-2.3); Phosphorus 4.4 mg/dL (2.5-4.5); Sodium 125 mmol/L (137-145)
[2023-04-08 04:52] LABS: CRP 16.3 mg/dL (<1.0)
[2023-04-08] MEDS: CENTRAL LINE FLUSH 10 ML IV PUSH ×3 (05:27→22:35)
[2023-04-08] MEDS: MIDAZOLAM 100MG/NS 100ML(*CRX) 100 MG/100 ML BAG IV CONT (05:30)
[2023-04-08 05:32] LABS: Base Excess ABG 1.8 mEq/l (+/-2.0); Carboxyhemoglobin 0.3 % THb (0-2.0); Fractional Inspired Oxygen 85 %; HCO3 ABG 26.8 mEq/l (22.0-26.0); Methemoglobin ABG 0.2 %THb (0-1.5); Oxygen Content ABG 16.4 %vol (16.0-22.0); Oxygen Saturation ABG 97.8 % (95.0-100.0); Oxyhemoglobin 96.9 % THb (90.0-100.0); PCO2 ABG 43.6 mmHg (35.0-45.0); PO2 ABG 103.8 mmHg (80.0-100.0); PO2 FiO2 Ratio Arterial Blood 1.22 %; Reduced Hemoglobin 2.6 %THb (0-5.0); Total Hemoglobin 11.9 g/dL (12.0-18.0); pH ABG 7.407 (7.350-7.450)
[2023-04-08] MEDS: NOREPINEPHRINE 8 MG/D5W 250 ML 8 MG/250 ML BAG 7.5 MG IV CONT (05:32)
[2023-04-08 05:33] LABS: Site Drawn ARTLINE
[2023-04-08 05:34] LABS: Arterial Blood Gas PEEP 12 cmH2O; Arterial Blood Gas Tidal Volume 450 ml; Arterial Blood Gas Vent Mode CMV; Arterial Blood Gas Ventilator rate 20 /MIN; Device VENTILATOR
[2023-04-08] MEDS: CEFEPIME 2 GM/NS 50 ML 2 GM/50 ML BAG IVPB ×3 (05:34→22:35)
[2023-04-08 05:47] LABS: Glucose Point of Care 186 mg/dl (65-105)
[2023-04-08 07:21] LABS: Reflex Lactic Acid Yes or No Add Lactic
[2023-04-08 07:24] LABS: Glucose Point of Care 192 mg/dl (65-105)
[2023-04-08] MEDS: AMIODARONE 150 MG/D5W 100 ML 150 MG/100 ML BAG 600 MG IV CONT (07:47)
[2023-04-08] MEDS: AMIODARONE 360 MG/D5W 200 ML 360 MG/200 ML BAG 33.33 MG IV CONT (07:58)
[2023-04-08] MEDS: MINERAL OIL/WHITE PETROLATUM OINTMENT 1 APPLIC EACH EYE ×2 (08:09→20:31)
[2023-04-08] MEDS: PANTOPRAZOLE SODIUM IV 40 MG VIAL IV PUSH (08:09)
[2023-04-08] MEDS: FUROSEMIDE INJ 40 MG/4 ML VIAL IV PUSH ×2 (08:09→17:11)
[2023-04-08] MEDS: AZITHROMYCIN 500 MG/NS 250 ML 500 MG/250 ML BAG 250 MG IVPB (08:09)
--- NOTE | 2023-04-08 09:00 | WPDINTPN ---
Progress Note: A&P Assessment and Plan (1) Shock: Code(s): R57.9 - Shock, unspecified Status: Acute Assessment and Plan: Patient presented with hyperglycemia, shortness of breath, bilateral diffuse lung disease, hypotension, new onset AFib RVR, patient dropped her blood pressures, central line was inserted on 04/07/2023 -continue Levophed, will maintain MAP > 65 mmHg at all times for adequate end organ perfusion - repeat lactic acid this morning remains normal -continue cefepime, azithromycin and vancomycin (04/07) -shock could be related to septic versus cardiogenic Procalcitonin level is a 0.2 -04/07 blood cultures: obtained and pending, will deescalate antibiotics once cultures are resulted -04/07: Sputum cultures obtained and pending 04/07/2023 echocardiogram Summary ? 1. Left ventricular chamber dimension is normal. ? 2. Left ventricular systolic function is severely reduced, estimated at 30-35%. ? 3. There is mildly increased left ventricular wall thickness. ? 4. Left ventricular septal wall motion is abnormal with septal motion related to bundle branch block. ? 5. The left ventricular diastolic function is abnormal. ? 6. Left atrial chamber dimension is mildly enlarged. ? 7. There is mild mitral valve regurgitation. ? 8. The mitral valve has calcified annulus. ? 9. There is mild tricuspid valve regurgitation. ? 10. Mild pulmonary hypertension, estimated pulmonary arterial systolic pressure is 40 mmHg. (2) Respiratory failure: Code(s): J96.90 - Respiratory failure, unspecified, unspecified whether with hypoxia or hypercapnia Status: Acute Assessment and Plan: Patient presented with shortness of breath, cough for roughly 6 weeks along with anasarca, pitting edema bilateral lower extremities -patient failed BiPAP in the ER and was intubated 04/07/2024 -patient currently on CMV mode of ventilation, peep of 12 and 85% FiO2 -the ARDS physiology, low tidal volume and high PEEP strategy -chest x-ray this morning showed severe pulmonary edema pattern versus diffuse infection, small right pleural effusion -continue bronchodilators -sedated with fentanyl and Versed infusion, maintain RASS of -2 04/07: CTA chest: No evidence of pulmonary embolus, aortic dissection, or aortic aneurysm. Moderate to large right pleural effusion with near complete right lower lobe atelectasis. Minimal left pleural effusion. Extensive pulmonary consolidation bilaterally. Correlate for severe pulmonary edema versus bilateral extensive pneumonia. (3) Hypoglycemia: Code(s): E16.2 - Hypoglycemia, unspecified Status: Acute Assessment and Plan: Patient was unresponsive at, when EMS arrived patient was hypoglycemic with blood sugars in the 20s, EMS was unable to insert line so patient was given glucagon IM and oral glucose. On arrival to the ER patient, IV line was inserted patient was here NG dextrose 50% with improvement in sugars as well as mental status. -in the ICU patient was hypoglycemic and was given D50 x2 on separate occasions -will decrease D20 and wean to off blood pressures remain stable (4) CHF (congestive heart failure): Qualifiers: Heart failure type: combined systolic and diastolic Heart failure chronicity: acute Qualified Code(s): I50.41 - Acute combined systolic (congestive) and diastolic (congestive) heart failure Code(s): I50.9 - Heart failure, unspecified Status: Acute Assessment and Plan: New onset congestive heart failure, diastolic and systolic dysfunction on echocardiogram as above, new onset -diffuse anasarca and lower extremity pitting edema -echocardiogram as above -continue diuresis with Lasix 40 mg IV b.i.d. -appreciate Cardiology evaluation and recommendation (5) Cardiomyopathy: Code(s): I42.9 - Cardiomyopathy, unspecified Status: Acute Assessment and Plan: New onset cardiomyopathy -treatment as above for now -patient is on pres
[2023-04-08] MEDS: ALBUMIN HUMAN 25% 25 GM/100 ML 100 ML IVPB ×2 (09:18→17:11)
[2023-04-08] MEDS: HEPARIN SOD/D5W 100 UNITS/ML 25,000 UNITS/250 ML BAG 10 UNITS IV CONT (09:53)
[2023-04-08] MEDS: FENTANYL 2,500MCG/NS250ML(*CRX 2,500 MCG/250 ML BAG 10 MCG IV CONT (09:54)
--- NOTE | 2023-04-08 10:57 | PM.PNCARD ---
Progress Note: A&P Assessment and Plan (1) Congestive heart failure: Code(s): I50.9 - Heart failure, unspecified Status: Acute Assessment and Plan: No history of cardiomyopathy or CHF. He does have extensive peripheral edema and pulmonary edema consistent with acute decompensated heart failure. Continue IV furosemide. This is systolic in etiology (2) Acute respiratory failure: Code(s): J96.00 - Acute respiratory failure, unspecified whether with hypoxia or hypercapnia Status: Acute Assessment and Plan: Diffuse lung disease noted on CXR and chest CT. Pneumonia and heart failure related (3) Hyperlipidemia: Code(s): E78.5 - Hyperlipidemia, unspecified Status: Acute (4) Hypertension: Code(s): I10 - Essential (primary) hypertension Status: Acute Assessment and Plan: Hypotensive at presentation, now being supported with norepinephrine. Continue drip (5) New onset atrial fibrillation: Code(s): I48.91 - Unspecified atrial fibrillation Status: Acute Assessment and Plan: Continue heparin for anticoagulation and amiodarone for now. (6) Shock: Code(s): R57.9 - Shock, unspecified Status: Acute Assessment and Plan: Cardiogenic and septic (7) Cardiomyopathy: Code(s): I42.9 - Cardiomyopathy, unspecified Status: Acute Assessment and Plan: Uncertain cause of cardiomyopathy. May be related to AFib with RVR, dyssynchrony from left bundle branch block, underlying CAD or other. Obviously eventually will need further workup and investigation as well as to started on standard heart failure regimen when hemodynamically more stable. (8) Left bundle branch block: Code(s): I44.7 - Left bundle-branch block, unspecified Status: Acute Assessment and Plan: As above Subjective Date/time seen: 04/08/23 10:57 Interval history: Reason for consult: Acute hypoxic respiratory failure, bilateral infiltrates on CT scan of the chest, moderate to large right pleural effusion, pulmonary edema, hyponatremia, elevated troponin, new onset AFib, hypoglycemia, anasarca, new onset cardiomyopathy with EF of 30-35% 04/08/2023: Remains intubated, sedated, on pressors. Remains in AFib with reasonable heart rate control with amiodarone drip. Review of Systems Review of Systems: All systems reviewed & are unremarkable except as noted in HPI and below Respiratory: Comments: No hemoptysis Gastrointestinal: Comments: No vomiting Neurologic: Comments: Not responsive Exam Const: General: comfortable; No alert or awake Orientation/consciousness: No patient oriented x3 Other: intubated and sedated HENMT: Head: normal to inspection Other: OETT in place Eyes: General: appearance normal, both eyes and all related structures Sclera: sclerae normal Neck: Neck: normal visual inspection and supple Carotids: normal carotid upstroke Resp: Effort & Inspection: normal respiratory effort (mechanically ventilated) Auscultation: not clear to auscultation bilaterally and rhonchi (anteriorly ) Other: Unable to perform posterior Cardio: Rate: tachycardic Rhythm: abnormal rhythm irregularly irregular Heart sounds: S1 normal heart sound present, S2 normal heart sound present and no murmurs GI: Inspection: distended Auscultation: normal bowel sounds Urinary Catheter: Urinary Catheter: patent and draining Skin: General skin exam: normal color Neuro: General: No patient oriented x3 Extrem: General: abnormal to inspection, edema and pedal edema Other: Edema extending to abdomen. Extremities warm, well-perfused Psych: Appearance: grossly normal Mental Status: mental status grossly abnormal Objective Data Vital Signs Vital Signs: Vital Signs - 24 hr 04/07/23 11:05 04/07/23 11:05 04/07/23 11:54 Temperature Pulse Rate 94 68 Respiratory Rate Bl
[2023-04-08 11:06] LABS: Partial Thromboplastin Time 109.3 SECONDS (22.3-36.8)
--- NOTE | 2023-04-08 11:37 | P.CDI_ITS ---
CDI Query Clarification Request Documentation in the medical record indicates that the patient has: BMI= 41.7 Based on your medical judgement, can you further clarify in the progress notes the diagnosis associated with these findings, if known, such as: * Overweight * Obesity * Morbid Obesity * Other condition (Please specify) * None of the above/ Not applicable/ Unknown <Meeta Yip RN - Last Filed: 04/08/23 11:41> Clarified Diagnosis Clarified Diagnosis: obesity <Andrew Posadas MD - Last Filed: 04/09/23 09:36>
[2023-04-08 12:03] LABS: Glucose Point of Care 233 mg/dl (65-105)
[2023-04-08] MEDS: AMIODARONE 360 MG/D5W 200 ML 360 MG/200 ML BAG 16.67 MG IV CONT (13:38)
[2023-04-08 14:29] LABS: Glucose Point of Care 242 mg/dl (65-105)
[2023-04-08 16:24] LABS: Glucose Point of Care 251 mg/dl (65-105)
[2023-04-08 17:40] LABS: Partial Thromboplastin Time 69.4 SECONDS (22.3-36.8)
[2023-04-08 17:55] LABS: Glucose Point of Care 257 mg/dl (65-105)
[2023-04-08] MEDS: INSULIN ASPART (*BKC) 100 UNITS/ML SUB-Q (17:56)
[2023-04-08] MEDS: HEPARIN SODIUM 5,000 UNITS/ML VIAL 4000 UNITS IV PUSH (18:22)
[2023-04-08] MEDS: NOREPINEPHRINE 8 MG/D5W 250 ML 8 MG/250 ML BAG 22.5 MG IV CONT (18:26)
[2023-04-08] MEDS: MIDAZOLAM 100MG/NS 100ML(*CRX) 100 MG/100 ML BAG 7 MG IV CONT (20:28)
[2023-04-09] VITALS (20 sets, daily range): BP systolic 102–126; BP diastolic 59–84; PULSE 84–104; RESP 18–20; TEMP 37.1–37.7; O2SAT 86–97
[2023-04-09] MEDS: AMIODARONE 360 MG/D5W 200 ML 360 MG/200 ML BAG 16.67 MG IV CONT (00:31)
[2023-04-09] MEDS: INSULIN ASPART (*BKC) 100 UNITS/ML SUB-Q (00:32)
[2023-04-09 00:34] LABS: Glucose Point of Care 238 mg/dl (65-105)
[2023-04-09 00:46] LABS: Partial Thromboplastin Time 111.1 SECONDS (22.3-36.8)
[2023-04-09 01:02] LABS: Vancomycin Trough 24.2 ug/mL (10.0-20.0)
--- NOTE | 2023-04-09 01:43 | PC.NURSE ---
While bathing patient/doing back care the pts oxygen saturation dropped to 68% while on 100% FIO2. Pts current oxygen saturation is 93%. ICU respiratory and ICU charge aide notified. RN will continue to evaluate patient's ability to bath/roll as care continues. Lateral rotation remains on.
[2023-04-09] MEDS: IPRATROPIUM BR 0.02% INH SOLN 0.5 MG/2.5 ML VIAL INHALATION ×2 (02:00→08:12)
[2023-04-09] MEDS: ALBUTEROL SULFATE NEB 2.5 MG/3 ML INH INHALATION ×2 (02:01→08:12)
[2023-04-09 04:46] LABS: Alveolar/Arterial O2 Gradient 592.1 mmHg; Base Excess ABG 0.4 mEq/l (+/-2.0); Carboxyhemoglobin 0.3 % THb (0-2.0); Device VENTILATOR; Fractional Inspired Oxygen 100 %; Methemoglobin ABG 0.2 %THb (0-1.5); Oxygen Content ABG 15.2 %vol (16.0-22.0); Oxygen Saturation ABG 94.7 % (95.0-100.0); Oxyhemoglobin 93.9 % THb (90.0-100.0); PCO2 ABG 45.8 mmHg (35.0-45.0); PO2 ABG 75.1 mmHg (80.0-100.0); PO2 FiO2 Ratio Arterial Blood 0.75 %; Reduced Hemoglobin 5.6 %THb (0-5.0); Site Drawn ARTLINE; Total Hemoglobin 11.5 g/dL (12.0-18.0); pH ABG 7.372 (7.350-7.450)
[2023-04-09 04:47] LABS: Arterial Blood Gas PEEP 12 cmH2O; Arterial Blood Gas Tidal Volume 450 ml; Arterial Blood Gas Vent Mode CMV; Arterial Blood Gas Ventilator rate 20 /MIN
[2023-04-09] MEDS: NOREPINEPHRINE 8 MG/D5W 250 ML 8 MG/250 ML BAG 20.63 MG IV CONT (04:58)
[2023-04-09] MEDS: CEFEPIME 2 GM/NS 50 ML 2 GM/50 ML BAG IVPB (04:59)
[2023-04-09] MEDS: CENTRAL LINE FLUSH 10 ML IV PUSH (04:59)
--- NOTE | 2023-04-09 05:21 | PC.NURSE ---
RN called pts family regarding his declining respiratory status. RN spoke with pts son, Daryl, who said he would come to the hospital immediately.
[2023-04-09 05:22] LABS: Hematocrit 31.4 % (42.0-52.0); Hemoglobin 10.3 g/dL (14.0-18.0); Mean Corpuscular HGB Conc 32.8 g/dl (32-36); Mean Corpuscular Hemoglobin 26.6 pg (26-34); Mean Corpuscular Volume 81.1 fl (80-100); Mean Platelet Volume 9.4 fl (7.4-10.4); Platelet Count Result 321 k/mm3 (150-375); Red Blood Count 3.87 M/mm3 (4.6-6.20); Red Cell Distribution Width 17.2 % (11.5-14.5); White Blood Count 13.2 K/mm3 (4.5-10.0)
[2023-04-09 05:34] LABS: INR 1.1
[2023-04-09 05:38] LABS: Alanine Aminotransferase 18 U/L (6-50); Albumin Level 3.4 g/dL (3.5-5.1); Alkaline Phosphatase 102 U/L (38-126); Anion Gap 6 mmol/L (8-16); Aspartate Amino Transferase 36 U/L (17-59); Bilirubin,Total 0.9 mg/dL (0.2-1.3); Blood Urea Nitrogen 33 mg/dL (9-20); Calcium 7.8 mg/dL (8.4-10.2); Carbon Dioxide 27 mmol/L (22-30); Chloride 88 mmol/L (98-107); Estimated CRCL calculation 47 ml/min; Estimated Glomerular Filt Rate 35; Glucose 200 mg/dL (65-110); Magnesium 2.4 mg/dL (1.6-2.3); Phosphorus 4.6 mg/dL (2.5-4.5); Potassium 4.1 mmol/L (3.4-5.0); Sodium 121 mmol/L (137-145); Triglycerides 68 mg/dL (<150)
[2023-04-09 05:51] LABS: Anisocytosis 1+ (NORMAL); Band Neutrophils Percent 12 % (0-6); Lymphocytes Absolute Manual 0.39 K/mm3 (1.1-4.5); Monocytes Absolute Manual 0.26 K/mm3 (0.1-0.90); Monocytes Percent Manual 2 % (3-9); Neutrophils Absolute Manual 12.54 K/mm3 (1.3-6.7); Neutrophils Percent Manual 83 % (46-73); Platelet Estimate Adequate (Adequate); Total Cells Counted 100
[2023-04-09 05:52] LABS: Burr Cells 1+ (NORMAL); Hypochromasia 1+ (NORMAL); Ovalocytes 1+ (NORMAL); Schistocytes Rare (NORMAL)
[2023-04-09] MEDS: PANTOPRAZOLE SODIUM IV 40 MG VIAL IV PUSH (08:49)
[2023-04-09] MEDS: FUROSEMIDE INJ 40 MG/4 ML VIAL IV PUSH (08:49)
[2023-04-09] MEDS: AZITHROMYCIN 500 MG/NS 250 ML 500 MG/250 ML BAG 250 MG IVPB (08:50)
--- NOTE | 2023-04-09 09:02 | PM.PNCARD ---
Progress Note: A&P Assessment and Plan (1) Congestive heart failure: Code(s): I50.9 - Heart failure, unspecified Status: Acute Assessment and Plan: No history of cardiomyopathy or CHF. Echo shows reduced LVSF, EF 30 - 35% Remains significantly volume overloaded. Transferring to [facility] for volume removal with CRRT When he no longer requires pressors initiate GDMT Eventual ischemia evaluation (2) Acute respiratory failure: Code(s): J96.00 - Acute respiratory failure, unspecified whether with hypoxia or hypercapnia Status: Acute Assessment and Plan: Diffuse lung disease noted on CXR and chest CT. Pneumonia and heart failure related (3) Hyperlipidemia: Code(s): E78.5 - Hyperlipidemia, unspecified Status: Acute (4) Hypertension: Code(s): I10 - Essential (primary) hypertension Status: Acute Assessment and Plan: Hypotensive at presentation, now being supported with norepinephrine. Continue drip (5) New onset atrial fibrillation: Code(s): I48.91 - Unspecified atrial fibrillation Status: Acute Assessment and Plan: Continue heparin for anticoagulation and amiodarone for now. (6) Shock: Code(s): R57.9 - Shock, unspecified Status: Acute Assessment and Plan: Cardiogenic and septic (7) Cardiomyopathy: Code(s): I42.9 - Cardiomyopathy, unspecified Status: Acute Assessment and Plan: EF 30 - 35%. Etiology unclear. May be related to AFib with RVR, dyssynchrony from left bundle branch block, underlying CAD or other. Initiate GDMT when he is hemodynamically stable. Eventual ischemic evaluation (8) Left bundle branch block: Code(s): I44.7 - Left bundle-branch block, unspecified Status: Acute Assessment and Plan: As above Subjective Date/time seen: 04/09/23 09:02 Interval history: Reason for consult: Acute hypoxic respiratory failure, bilateral infiltrates on CT scan of the chest, moderate to large right pleural effusion, pulmonary edema, hyponatremia, elevated troponin, new onset AFib, hypoglycemia, anasarca, new onset cardiomyopathy with EF of 30-35% 04/08/2023: Remains intubated, sedated, on pressors. Remains in AFib with reasonable heart rate control with amiodarone drip. 04/09/23: No acute events overnight. Being transferred to [facility] today for CRRT Review of Systems Review of Systems: All systems reviewed & are unremarkable except as noted in HPI and below Exam Const: General: comfortable; No alert or awake Orientation/consciousness: No patient oriented x3 Other: intubated and sedated HENMT: Head: normal to inspection Other: OETT in place Eyes: General: appearance normal, both eyes and all related structures Sclera: sclerae normal Pupils: Equal, round and reactive pupils present Neck: Neck: normal visual inspection and supple Carotids: normal carotid upstroke Resp: Effort & Inspection: normal respiratory effort (mechanically ventilated) Auscultation: not clear to auscultation bilaterally and rhonchi (anteriorly ) Other: Unable to perform posterior Cardio: Rate: regular rate Rhythm: regular rhythm and abnormal rhythm irregularly irregular Heart sounds: S1 normal heart sound present, S2 normal heart sound present and no murmurs GI: Inspection: distended Auscultation: normal bowel sounds Urinary Catheter: Urinary Catheter: patent and draining Skin: General skin exam: normal color Neuro: General: No patient oriented x3 Cranial nerves: Yes Equal, round and reactive pupils present Extrem: General: abnormal to inspection, edema and pedal edema Other: Edema extending to abdomen. Extremities warm, well-perfused Psych: Appearance: grossly normal Mental Status: mental status grossly abnormal Objective Data Vital Signs Vital Signs: Vital Signs - 24 hr 04/08/23 09:25 04/08/23 09:54 04/08/23 09:54 Temperature Pulse
[2023-04-09] MEDS: MINERAL OIL/WHITE PETROLATUM OINTMENT 1 APPLIC EACH EYE (09:22)
[2023-04-09 09:28] LABS: Partial Thromboplastin Time 44.8 SECONDS (22.3-36.8)
[2023-04-09] MEDS: ROCURONIUM BROMIDE 50 MG/5 ML VIAL IV PUSH (09:30)
--- NOTE | 2023-04-09 09:36 | WPDINTPN ---
Progress Note: A&P Assessment and Plan (1) Shock: Code(s): R57.9 - Shock, unspecified Status: Acute Assessment and Plan: Patient presented with hyperglycemia, shortness of breath, bilateral diffuse lung disease, hypotension, new onset AFib RVR, patient dropped her blood pressures, central line was inserted on 04/07/2023 -continue Levophed, will maintain MAP > 65 mmHg at all times for adequate end organ perfusion -continue cefepime, azithromycin and vancomycin (04/07) -shock could be related to septic versus cardiogenic Procalcitonin level is a 0.2 -04/07 blood cultures: Preliminary blood cultures are negative so far -04/07: Sputum cultures negative 04/07/2023 echocardiogram Summary ? 1. Left ventricular chamber dimension is normal. ? 2. Left ventricular systolic function is severely reduced, estimated at 30-35%. ? 3. There is mildly increased left ventricular wall thickness. ? 4. Left ventricular septal wall motion is abnormal with septal motion related to bundle branch block. ? 5. The left ventricular diastolic function is abnormal. ? 6. Left atrial chamber dimension is mildly enlarged. ? 7. There is mild mitral valve regurgitation. ? 8. The mitral valve has calcified annulus. ? 9. There is mild tricuspid valve regurgitation. ? 10. Mild pulmonary hypertension, estimated pulmonary arterial systolic pressure is 40 mmHg. (2) Respiratory failure: Code(s): J96.90 - Respiratory failure, unspecified, unspecified whether with hypoxia or hypercapnia Status: Acute Assessment and Plan: Patient presented with shortness of breath, cough for roughly 6 weeks along with anasarca, pitting edema bilateral lower extremities -patient failed BiPAP in the ER and was intubated 04/07/2024 -patient currently on CMV mode of ventilation, peep of 14 and FiO2 of 100% -the ARDS physiology, low tidal volume and high PEEP strategy -chest x-ray this morning Diffuse pulmonary consolidation with small right pleural effusion. Correlate for pulmonary edema versus infection. -continue bronchodilators -sedated with fentanyl and Versed infusion, maintain RASS of -2 -patient not responding to diuresis, will require CRRT, discussed this with family, they agreeable for patient to be transferred to a tertiary center for higher level of care. -I called [facility] and discussed with the home school teacher Dr. Duke, patient was accepted to their ICU, awaiting bed. 04/07: CTA chest: No evidence of pulmonary embolus, aortic dissection, or aortic aneurysm. Moderate to large right pleural effusion with near complete right lower lobe atelectasis. Minimal left pleural effusion. Extensive pulmonary consolidation bilaterally. Correlate for severe pulmonary edema versus bilateral extensive pneumonia. (3) Hypoglycemia: Code(s): E16.2 - Hypoglycemia, unspecified Status: Acute Assessment and Plan: Patient was unresponsive at, when EMS arrived patient was hypoglycemic with blood sugars in the 20s, EMS was unable to insert line so patient was given glucagon IM and oral glucose. On arrival to the ER patient, IV line was inserted patient was here NG dextrose 50% with improvement in sugars as well as mental status. -in the ICU patient was hypoglycemic and was given D50 x2 on separate occasions -off D 20 infusion since 04/08/2023 -currently on sliding scale insulin and Accu-Cheks -hypoglycemia resolved (4) CHF (congestive heart failure): Qualifiers: Heart failure chronicity: acute Heart failure type: combined systolic and diastolic Qualified Code(s): I50.41 - Acute combined systolic (congestive) and diastolic (congestive) heart failure Code(s): I50.9 - Heart failure, unspecified Status: Acute Assessment and Plan: New onset congestive heart failure, diastolic and systolic dysfunction on echocardiogram as above, new onset -diffuse anasarca and lower extremity pitting edema -echocardiogram as above -patient has n
[2023-04-09] MEDS: HEPARIN SODIUM 5,000 UNITS/ML VIAL 8000 UNITS IV PUSH (10:27)
--- NOTE | 2023-04-09 10:43 | PCDIET ---
Pt being transferred to [facility] today.
[2023-04-09] MEDS: FENTANYL 2,500MCG/NS250ML(*CRX 2,500 MCG/250 ML BAG 7.5 MCG IV CONT (11:13)
[2023-04-09] MEDS: ROCURONIUM BROMIDE 50 MG/5 ML VIAL 100 MG IV PUSH (11:15)
[2023-04-09] MEDS: HEPARIN SOD/D5W 100 UNITS/ML 25,000 UNITS/250 ML BAG 12 UNITS IV CONT (11:19)
[2023-04-09 12:28] LABS: Mycoplasma IgM Antibody Titer 35 U/mL (<770)
[2023-04-09 22:14] LABS: Pneumococcal Antigen Urine Not Detected (Not Detected)
[2023-04-11 03:21] LABS: Legionella pneumophila Ag Ur Not Detected (Not Detected)
--- NOTE | 2023-05-20 13:42 | PM.TDS ---
Transfer Discharge Sum: Prov Provider Date of admission: 04/07/23 12:28 Primary care physician: Ludmila Alvarenga, MD Admitting clinician: Latesha Kendall MD Consults: 04/07/23 13:19 Consult to Physician Routine Comment: spoke with Elvira Fuller @[id number](ER,US) Consulting Provider: Elvira Fuller call worker/MD group to consult: Cardiology Reason for consultation: New onset AFib, diffuse edema, cardiogenic shock Has provider been notified: Yes Attending physician on discharge: Andrew Posadas Anticipated date of transfer: 04/09/23 Receiving physician/facility: [facility] DS: Admitting Diagnosis Discharge Date 04/09/23 Admitting Diagnosis Acute hypoxic respiratory failure, bilateral infiltrates on CT scan of the chest, moderate to large right pleural effusion, pulmonary edema, hyponatremia, elevated troponin, new onset AFib, hypoglycemia DS: Discharge Diagnosis Discharge Diagnosis (1) Shock: Code(s): R57.9 - Shock, unspecified Status: Acute Assessment and Plan: Patient presented with hyperglycemia, shortness of breath, bilateral diffuse lung disease, hypotension, new onset AFib RVR, patient dropped her blood pressures, central line was inserted on 04/07/2023 -continue Levophed, will maintain MAP > 65 mmHg at all times for adequate end organ perfusion -continue cefepime, azithromycin and vancomycin (04/07) -shock could be related to septic versus cardiogenic Procalcitonin level is a 0.2 -04/07 blood cultures: Preliminary blood cultures are negative so far -04/07: Sputum cultures negative 04/07/2023 echocardiogram Summary ? 1. Left ventricular chamber dimension is normal. ? 2. Left ventricular systolic function is severely reduced, estimated at 30-35%. ? 3. There is mildly increased left ventricular wall thickness. ? 4. Left ventricular septal wall motion is abnormal with septal motion related to bundle branch block. ? 5. The left ventricular diastolic function is abnormal. ? 6. Left atrial chamber dimension is mildly enlarged. ? 7. There is mild mitral valve regurgitation. ? 8. The mitral valve has calcified annulus. ? 9. There is mild tricuspid valve regurgitation. ? 10. Mild pulmonary hypertension, estimated pulmonary arterial systolic pressure is 40 mmHg. (2) Respiratory failure: Code(s): J96.90 - Respiratory failure, unspecified, unspecified whether with hypoxia or hypercapnia Status: Acute Assessment and Plan: Patient presented with shortness of breath, cough for roughly 6 weeks along with anasarca, pitting edema bilateral lower extremities -patient failed BiPAP in the ER and was intubated 04/07/2024 -patient currently on CMV mode of ventilation, peep of 14 and FiO2 of 100% -the ARDS physiology, low tidal volume and high PEEP strategy -chest x-ray this morning Diffuse pulmonary consolidation with small right pleural effusion. Correlate for pulmonary edema versus infection. -continue bronchodilators -sedated with fentanyl and Versed infusion, maintain RASS of -2 -patient not responding to diuresis, will require CRRT, discussed this with family, they agreeable for patient to be transferred to a tertiary center for higher level of care. -I called [facility] and discussed with the basic acoustic analyst Dr. Duke, patient was accepted to their ICU, awaiting bed. 04/07: CTA chest: No evidence of pulmonary embolus, aortic dissection, or aortic aneurysm. Moderate to large right pleural effusion with near complete right lower lobe atelectasis. Minimal left pleural effusion. Extensive pulmonary consolidation bilaterally. Correlate for severe pulmonary edema versus bilateral extensive pneumonia. (3) Hypoglycemia: Code(s): E16.2 - Hypoglycemia, unspecified Status: Acute Assessment and Plan: Patient was unresponsive at, when EMS arrived patient was hypoglycemic with blood sugars in the 20s, EMS was unable to insert line
== END 2023-04-09 11:52 | disposition short-term general hospital (02) | DRG 871 ==
LOC: ANHED 07:11 → ANH3MEDSUR 09:40 → ANHICU 09:41
PROVIDERS: Emergency Medicine; Nurse Practitioner; Physician Assistant; Admitting Provider Family Medicine; Emergency Provider Emergency Medicine; PCP Family Medicine; Visit Provider Internal Medicine
DX: A41.9 Sepsis, unspecified organism (principal); I50.41 Acute combined systolic (congestive) and diastolic (congestive) heart failure; R57.0 Cardiogenic shock; J96.01 Acute respiratory failure with hypoxia; J18.9 Pneumonia, unspecified organism; R65.21 Severe sepsis with septic shock; E87.1 Hypo-osmolality and hyponatremia; I42.9 Cardiomyopathy, unspecified; I11.0 Hypertensive heart disease with heart failure; I48.91 Unspecified atrial fibrillation; E11.649 Type 2 diabetes mellitus with hypoglycemia without coma; E11.42 Type 2 diabetes mellitus with diabetic polyneuropathy; E78.5 Hyperlipidemia, unspecified; E66.9 Obesity, unspecified; R79.89 Other specified abnormal findings of blood chemistry; Z20.822 Contact with and (suspected) exposure to COVID-19; Z79.4 Long term (current) use of insulin; Z91.199 Patient's noncompliance with other medical treatment and regimen due to unspecified reason
CPT/HCPCS: 31500; 36415; 36600; 71045; 71275; 80053; 80061; 80202; 81001; 82375; 82805; 82948; 83050; 83605; 83690; 83735; 83880; 84100; 84145; 84443; 84478; 84484; 85025; 85610; 85730; 86140; 86738; 87040; 87070; 87205; 87449; 87637; 87641; 87899; 93005; 93970; 94002; 94003; 94640; 96365; 96375; 99291; A9270; C1751; C8929; C9113; G0378; J0171; J0282; J0330; J0456; J0692; J0696; J1644; J1815; J1940; J2250; J2704; J3010; J3370; P9047; Q9957; Q9967

== ENCOUNTER 2023-05-07 13:49 | Outpatient (NON) | payer MEDICARE, SELFPAY ==
[2023-05-07 16:22] LABS: Anion Gap 11 mmol/L (8-16); Blood Urea Nitrogen 17 mg/dL (9-20); Calcium 9.8 mg/dL (8.4-10.2); Carbon Dioxide 25 mmol/L (22-30); Chloride 102 mmol/L (98-107); Estimated Glomerular Filt Rate 43; Glucose 132 mg/dL (65-110); Phosphorus 4.1 mg/dL (2.5-4.5); Potassium 4.8 mmol/L (3.4-5.0); Sodium 138 mmol/L (137-145)
== END 2023-05-07 13:50 | disposition home or self-care (01) ==
LOC: ANHLAB 13:56 → HOME HLTH 13:57
PROVIDERS: PCP Family Medicine
DX: N17.9 Acute kidney failure, unspecified (principal)
CPT/HCPCS: 80069

== ENCOUNTER 2023-05-28 12:20 | Outpatient (NON) | payer MEDICARE, SELFPAY ==
[2023-05-28 13:55] LABS: Albumin Level 3.9 g/dL (3.5-5.1); Anion Gap 9 mmol/L (8-16); Blood Urea Nitrogen 21 mg/dL (9-20); Calcium 9.3 mg/dL (8.4-10.2); Carbon Dioxide 24 mmol/L (22-30); Chloride 102 mmol/L (98-107); Estimated Glomerular Filt Rate 40; Glucose 108 mg/dL (65-110); Potassium 4.5 mmol/L (3.4-5.0); Sodium 135 mmol/L (137-145)
== END 2023-05-28 12:21 | disposition home or self-care (01) ==
PROVIDERS: PCP Family Medicine
DX: N17.9 Acute kidney failure, unspecified (principal); R60.1 Generalized edema
CPT/HCPCS: 36415; 80069

== ENCOUNTER 2023-06-18 14:26 | Outpatient (RCR) | payer MEDICARE, SELFPAY ==
[2023-04-30 15:51] LABS: Albumin Level 3.7 g/dL (3.5-5.1); Anion Gap 9 mmol/L (8-16); Blood Urea Nitrogen 32 mg/dL (9-20); Calcium 8.9 mg/dL (8.4-10.2); Carbon Dioxide 25 mmol/L (22-30); Chloride 105 mmol/L (98-107); Estimated Glomerular Filt Rate 46; Glucose 96 mg/dL (65-110); Phosphorus 4.1 mg/dL (2.5-4.5); Potassium 4.7 mmol/L (3.4-5.0); Sodium 139 mmol/L (137-145)
[2023-06-18 15:58] LABS: Albumin Level 3.8 g/dL (3.5-5.1); Anion Gap 7 mmol/L (4-12); Blood Urea Nitrogen 22 mg/dL (9-20); Calcium 9.1 mg/dL (8.4-10.2); Carbon Dioxide 24 mmol/L (22-30); Chloride 97 mmol/L (98-107); Estimated Glomerular Filt Rate 43; Glucose 112 mg/dL (65-110); Phosphorus 4.4 mg/dL (2.5-4.5); Potassium 4.7 mmol/L (3.4-5.0); Sodium 128 mmol/L (137-145)
== END 2023-07-29 23:59 | disposition home or self-care (01) ==
LOC: HOME HLTH 14:26
PROVIDERS: PCP Family Medicine
DX: N17.9 Acute kidney failure, unspecified (principal); I50.21 Acute systolic (congestive) heart failure; R57.9 Shock, unspecified
CPT/HCPCS: 80069